=== PATIENT | female | born 1995 | race Caucasian/White ===

== ENCOUNTER → 2017-11-24 | Outpatient (CLI) | payer BC | END | disposition home or self-care (01) | LOC: U/S 12:11 | DX: O36.71X0 Maternal care for viable fetus in abdominal pregnancy, first trimester, not applicable or unspecified (principal); Z3A.00 Weeks of gestation of pregnancy not specified | CPT/HCPCS: 76801; 76817 ==

== ENCOUNTER 2018-04-05 11:55 | Outpatient (CLI) | payer OTHER, BC ==
[2018-04-05] MEDS ORDERED: ONDANSETRON 4 MG INJ IV (12:30)
[2018-04-05] MEDS ORDERED: LOPERAMIDE 2 MG CAP PO (12:30)
[2018-04-05 12:58] LABS: ADD MAN DIFF? NO
[2018-04-05 13:00] LABS: WHITE BLOOD COUNT 10.3 10^3/ul (4.8-10.8)
[2018-04-05 13:00] LABS: BASOPHILS % 0.1 % (0.0-2.0); EOSINOPHILS % 0.3 % (0.0-7.0); HEMOGLOBIN 12.2 g/dl (12.0-16.0); LYMPHOCYTES # 0.8 10^3/ul (0.8-2.9); LYMPHOCYTES % 7.6 % (15.0-51.0); MEAN CORPUSCULAR HEMOGLOBIN 31.1 pg (29.0-33.0); MEAN CORPUSCULAR HGB CONC 34.9 g/dl (32.0-37.0); MEAN CORPUSCULAR VOLUME 89.3 fl (82.0-101.0); MEAN PLATELET VOLUME 10.5 fl (7.4-10.4); MONOCYTE # 0.7 10^3/ul (0.3-0.9); NEUTROPHIL # 8.7 10^3/ul (1.6-7.5); NEUTROPHILS % 84.5 % (39.0-77.0); PLATELET COUNT 199 10^3/UL (140-415); RED BLOOD COUNT 3.92 10^6/ul (4.20-5.40); RED CELL DISTRIBUTION WIDTH 12.8 % (11.5-14.5)
[2018-04-05] MEDS: DEXTROSE 5%-0.45% NACL 1,000 ML IV (13:00)
[2018-04-05] MEDS: TERBUTALINE 1 MG/ML INJ SC (13:10)
[2018-04-05] MEDS: LOPERAMIDE 2 MG CAP PO (13:19)
[2018-04-05 13:23] LABS: ALANINE AMINOTRANSFERASE 10 IU/L (13-69); ALBUMIN 3.8 g/dl (3.3-4.9); ALBUMIN/GLOBULIN RATIO 1.15; ALKALINE PHOSPHATASE 113 IU/L (42-121); ANION GAP 9 (5-13); ASPARTATE AMINO TRANSFERASE 19 IU/L (15-46); BILIRUBIN,INDIRECT 0.4 mg/dl (0-1.1); BILIRUBIN,TOTAL 0.4 mg/dl (0.2-1.3); BLOOD UREA NITROGEN 10 mg/dl (7-20); CALCIUM 8.9 mg/dl (8.4-10.2); CARBON DIOXIDE 22 mmol/L (21-31); CHLORIDE 103 mmol/L (97-110); CREATININE 0.48 mg/dl (0.44-1.00); Estimated GFR > 60 mL/min (>60); GLUCOSE 74 mg/dl (70-220); POTASSIUM 3.7 mmol/L (3.5-5.1); SODIUM 134 mmol/L (135-144); TOTAL PROTEIN 7.1 g/dl (6.1-8.1)
[2018-04-05 13:30] LABS: ADD UMIC YES; UR ASCORBIC ACID 40 mg/dL (NEGATIVE); UR BILIRUBIN (Dip) NEGATIVE (NEGATIVE); UR BLOOD (Dip) NEGATIVE (NEGATIVE); UR CLARITY SLIGHTLY CLOUDY (CLEAR); UR COLOR YELLOW (YELLOW); UR GLUCOSE (Dip) NEGATIVE (NEGATIVE); UR KETONES (Dip) NEGATIVE (NEGATIVE); UR LEUKOCYTE ESTERASE (Dip) NEGATIVE Leu/ul (NEGATIVE); UR MUCUS MODERATE /HPF (NONE SEEN); UR NITRITE (Dip) NEGATIVE (NEGATIVE); UR RBC 1 /HPF (0-5); UR SPECIFIC GRAVITY (Dip) 1.028 (1.003-1.030); UR SQUAMOUS EPITHELIAL CELL FEW /HPF (FEW); UR TOTAL PROTEIN (Dip) 1+ mg/dl (NEGATIVE); UR UROBILINOGEN (Dip) NEGATIVE (NEGATIVE); UR WBC 2 /HPF (0-5)
== END 2018-04-05 16:00 | disposition home or self-care (01) ==
LOC: OBT 11:55 → L-D 11:55 → OBT 16:00
DX: O21.0 Mild hyperemesis gravidarum (principal); O62.9 Abnormality of forces of labor, unspecified; Z3A.27 27 weeks gestation of pregnancy
CPT/HCPCS: 36415; 76815; 76817; 76818; 80053; 81001; 85025; 96360; 96361; 96372

== ENCOUNTER 2018-06-28 02:25 | Outpatient (CLI) | payer OTHER | END 2018-06-28 04:28 | disposition home or self-care (01) | LOC: OBT 02:25 → L-D 02:25 → OBT 04:28 | DX: O62.9 Abnormality of forces of labor, unspecified (principal); Z3A.39 39 weeks gestation of pregnancy | CPT/HCPCS: 76818 ==

== ENCOUNTER 2018-06-28 20:23 | Inpatient (IN) | payer OTHER ==
[2018-06-28] MEDS ORDERED: LIDOCAINE 1% (MPF) 30 ML INJ INJ (21:00)
[2018-06-28] MEDS ORDERED: METHYLERGONOVINE 0.2 MG INJ IM (21:00)
[2018-06-28] MEDS ORDERED: CARBOPROST 250 MCG INJ IM (21:00)
[2018-06-28] MEDS ORDERED: BUTORPHANOL 1 MG INJ IV (21:00)
[2018-06-28] MEDS ORDERED: MISOPROSTOL 200 MCG TAB PR (21:00)
[2018-06-28] MEDS ORDERED: BUTORPHANOL 2 MG INJ IV (21:00)
[2018-06-28] MEDS ORDERED: OXYTOCIN 30 UNITS/LR 500 ML IV ×2 (21:00)
[2018-06-28] MEDS ORDERED: MINERAL OIL LIGHT 10 ML VIAL TOP (21:30)
[2018-06-28 21:38] LABS: ADD MAN DIFF? NO
[2018-06-28 21:41] LABS: BASOPHILS % 0.2 % (0.0-2.0); EOSINOPHILS % 0.3 % (0.0-7.0); HEMATOCRIT 36.2 % (37.0-47.0); HEMOGLOBIN 12.3 g/dl (12.0-16.0); LYMPHOCYTES # 1.6 10^3/ul (0.8-2.9); LYMPHOCYTES % 12.1 % (15.0-51.0); MEAN CORPUSCULAR HEMOGLOBIN 29.5 pg (29.0-33.0); MEAN CORPUSCULAR VOLUME 86.8 fl (82.0-101.0); MEAN PLATELET VOLUME 11.3 fl (7.4-10.4); MONOCYTE # 0.9 10^3/ul (0.3-0.9); MONOCYTES % 6.4 % (0.0-11.0); NEUTROPHIL # 10.7 10^3/ul (1.6-7.5); NEUTROPHILS % 80.3 % (39.0-77.0); PLATELET COUNT 184 10^3/UL (140-415); RED BLOOD COUNT 4.17 10^6/ul (4.20-5.40); RED CELL DISTRIBUTION WIDTH 13.2 % (11.5-14.5)
[2018-06-28 21:41] LABS: WHITE BLOOD COUNT 13.3 10^3/ul (4.8-10.8)
[2018-06-28] MEDS: LACTATED RINGER'S 1,000 ML IV ×2 (21:49→22:17)
[2018-06-28 22:02] LABS: INR 0.88; PT RATIO 0.9
[2018-06-28 22:03] LABS: PARTIAL THROMBOPLASTIN TIME 23.3 Sec (23.0-35.0)
[2018-06-28 22:33] LABS: HEPATITIS B SURFACE ANTIGEN NEGATIVE (NEGATIVE)
[2018-06-28] MEDS ORDERED: FENTAnyl 2MCG/ML-ROPIV 0.2% 100 ML (22:39)
[2018-06-28] MEDS ORDERED: NALOXONE (0.4 MG/ML) INJ IV (23:00)
[2018-06-28] MEDS ORDERED: DIPHENHYDRAMINE 50 MG INJ IV (23:00)
[2018-06-29] MEDS: LACTATED RINGER'S 1,000 ML IV ×4 (02:57→17:19)
[2018-06-29] MEDS: FENTAnyl 2MCG/ML-ROPIV 0.2% 100 ML BAG EPI ×2 (05:43→11:42)
[2018-06-29] MEDS ORDERED: TERBUTALINE 1 ML (06:49)
[2018-06-29] MEDS: TERBUTALINE 1 MG/ML INJ SC (07:06)
[2018-06-29] MEDS: ONDANSETRON 4 MG INJ IV (11:04)
[2018-06-29 15:01] LABS: RAPID PLASMA REAGIN NONREACTIVE (NR)
[2018-06-29] MEDS: OXYTOCIN 30 UNITS/LR 500 ML IV ×2 (19:05→19:22)
[2018-06-29] MEDS: KETOROLAC 30 MG INJ IV (19:49)
[2018-06-29] MEDS: IBUPROFEN 600 MG TAB PO (19:54)
[2018-06-29] MEDS: CEFAZOLIN 2 GM/50 ML (PMX) 50 ML IVPB (21:00)
[2018-06-29] MEDS: BENZOCAINE 20% 56 ML SPRAY TOP (21:59)
[2018-06-29] MEDS: LANOLIN HPA 1 PKT TOP (21:59)
[2018-06-29] MEDS: WITCH HAZEL/GLYCERIN PAD PR (21:59)
[2018-06-29] MEDS: DIBUCAINE 1% 30 GM OINT TOP (21:59)
[2018-06-29] MEDS ORDERED: OXYTOCIN 30 UNITS/LR 500 ML IV (22:00)
[2018-06-29] MEDS ORDERED: ZOLPIDEM 5 MG TAB PO (22:00)
[2018-06-29] MEDS ORDERED: MISOPROSTOL 200 MCG TAB PR (22:00)
[2018-06-29] MEDS ORDERED: METHYLERGONOVINE 0.2 MG INJ IM (22:00)
[2018-06-29] MEDS ORDERED: CARBOPROST 250 MCG INJ IM (22:00)
[2018-06-29] MEDS ORDERED: HYDROCODONE/APAP (5/325) TAB PO (22:00)
[2018-06-29] MEDS: HYDROCODONE/APAP (5/325) TAB PO (22:02)
[2018-06-29] MEDS: CEPHALEXIN 500 MG CAP PO (23:56)
[2018-06-30] MEDS: LACTATED RINGER'S 1,000 ML IV* ×2 (00:07→05:31)
[2018-06-30] MEDS: DIPHENHYDRAMINE 50 MG INJ IM (02:00)
[2018-06-30] MEDS: HYDROCODONE/APAP (5/325) TAB PO ×3 (04:07→23:25)
[2018-06-30] MEDS: IBUPROFEN 600 MG TAB PO ×5 (05:42→23:54)
[2018-06-30 07:19] LABS: ADD MAN DIFF? NO
[2018-06-30 07:23] LABS: WHITE BLOOD COUNT 15.2 10^3/ul (4.8-10.8)
[2018-06-30 07:23] LABS: BASOPHILS % 0.3 % (0.0-2.0); EOSINOPHILS # 0.1 10^3/ul (0.0-0.5); EOSINOPHILS % 0.4 % (0.0-7.0); HEMATOCRIT 27.3 % (37.0-47.0); HEMOGLOBIN 9.2 g/dl (12.0-16.0); LYMPHOCYTES # 1.8 10^3/ul (0.8-2.9); LYMPHOCYTES % 11.8 % (15.0-51.0); MEAN CORPUSCULAR HGB CONC 33.7 g/dl (32.0-37.0); MEAN CORPUSCULAR VOLUME 88.9 fl (82.0-101.0); MONOCYTE # 1.2 10^3/ul (0.3-0.9); MONOCYTES % 7.6 % (0.0-11.0); NEUTROPHIL # 12.1 10^3/ul (1.6-7.5); NEUTROPHILS % 79.2 % (39.0-77.0); PLATELET COUNT 152 10^3/UL (140-415); RED BLOOD COUNT 3.07 10^6/ul (4.20-5.40); RED CELL DISTRIBUTION WIDTH 13.1 % (11.5-14.5)
[2018-06-30] MEDS: NITROFURANTOIN (SR) 100 MG CAP PO ×2 (09:08→21:25)
[2018-06-30] MEDS: MAGNESIUM HYDROXIDE 30ML CUP PO ×2 (09:08→21:00)
[2018-06-30] MEDS: ESTROGENS CONJUGATED 42.5 GM VAG CR TOP ×2 (09:09→21:25)
[2018-06-30] MEDS: SENNA/DOCUSATE NA (8.6MG/50MG) TAB PO ×2 (09:09→21:00)
[2018-07-01] MEDS: IBUPROFEN 600 MG TAB PO ×3 (05:42→17:36)
[2018-07-01] MEDS: DIPHTH/TET/ACEL PERTUSS (ADULT) 0.5 ML VIAL IM* (08:31)
[2018-07-01] MEDS: MEASLES,MUMPS,RUBELLA VACCINE INJ SC* (08:34)
[2018-07-01 08:37] LABS: ADD MAN DIFF? NO
[2018-07-01 08:39] LABS: WHITE BLOOD COUNT 14.2 10^3/ul (4.8-10.8)
[2018-07-01 08:39] LABS: BASOPHILS % 0.3 % (0.0-2.0); EOSINOPHILS # 0.1 10^3/ul (0.0-0.5); HEMATOCRIT 28.7 % (37.0-47.0); HEMOGLOBIN 9.6 g/dl (12.0-16.0); LYMPHOCYTES # 2.2 10^3/ul (0.8-2.9); LYMPHOCYTES % 15.5 % (15.0-51.0); MEAN CORPUSCULAR HEMOGLOBIN 29.8 pg (29.0-33.0); MEAN CORPUSCULAR HGB CONC 33.4 g/dl (32.0-37.0); MEAN CORPUSCULAR VOLUME 89.1 fl (82.0-101.0); MEAN PLATELET VOLUME 11.3 fl (7.4-10.4); MONOCYTE # 0.9 10^3/ul (0.3-0.9); NEUTROPHIL # 10.9 10^3/ul (1.6-7.5); NEUTROPHILS % 76.6 % (39.0-77.0); PLATELET COUNT 173 10^3/UL (140-415); RED BLOOD COUNT 3.22 10^6/ul (4.20-5.40); RED CELL DISTRIBUTION WIDTH 13.2 % (11.5-14.5)
[2018-07-01] MEDS: MAGNESIUM HYDROXIDE 30ML CUP PO (09:30)
[2018-07-01] MEDS: NITROFURANTOIN (SR) 100 MG CAP PO (09:30)
[2018-07-01] MEDS: ESTROGENS CONJUGATED 42.5 GM VAG CR TOP (09:31)
[2018-07-01] MEDS: SENNA/DOCUSATE NA (8.6MG/50MG) TAB PO (09:34)
[2018-07-01] MEDS: VARICELLA VACCINE LIVE/PF 1,350 UNIT/0.5 ML ML SC* (11:33)
== END 2018-07-01 18:07 | disposition home or self-care (01) | DRG 768 ==
LOC: OBT 20:23 → L-D 20:24 → PP1 06-29 21:12 → OBT 20:55 → L-D 20:55
PROVIDERS: Obstetrics & Gynecology
PROC: 10E0XZZ Delivery of Products of Conception, External Approach (ICD-10-PCS; principal; 2018-06-29)
PROC: 0DQP0ZZ Repair Rectum, Open Approach (ICD-10-PCS; 2018-06-29)
PROC: 0W8NXZZ Division of Female Perineum, External Approach (ICD-10-PCS; 2018-06-29)
DX: O76 Abnormality in fetal heart rate and rhythm complicating labor and delivery (principal); Z37.0 Single live birth; O70.3 Fourth degree perineal laceration during delivery; O69.81X0 Labor and delivery complicated by cord around neck, without compression, not applicable or unspecified; Z3A.40 40 weeks gestation of pregnancy; Z23 Encounter for immunization
CPT/HCPCS: 62322; 76815; 85025; 85610; 85730; 86592; 86850; 86900; 86901; 87340; 90716; 99464